=== PATIENT | male | born 1995 | race Caucasian/White ===

== ENCOUNTER 2020-11-01 13:50 | Emergency (ER) | payer OTHER | END 2020-11-01 14:33 | disposition home or self-care (01) | LOC: JVIRT 13:50 | DX: Z20.828 Contact with and (suspected) exposure to other viral communicable diseases (principal) | CPT/HCPCS: C9803; G2012-GT; Q3014-GT; U0003 ==

== ENCOUNTER 2020-11-09 11:23 | Emergency (ER) | payer OTHER | END 2020-11-09 11:43 | disposition home or self-care (01) | LOC: JVIRT 11:23 | DX: Z20.828 Contact with and (suspected) exposure to other viral communicable diseases (principal) | CPT/HCPCS: C9803; Q3014-GT; U0003 ==